=== PATIENT | male | born 1980 | race Caucasian/White ===

== ENCOUNTER 2020-05-12 06:36 | Emergency (ER) | payer SELFPAY ==
[~2020-05-12] VITALS: Ht 172.7 cm; Wt 59.2 kg
[2020-05-12 06:38] VITALS: BP 106/63
[2020-05-12] MEDS ORDERED: IBUP-1902 PO (07:19)
[2020-05-12] MEDS ORDERED: IBUPROFEN 200 MG TABLET ONE (07:24)
[2020-05-12] MEDS ORDERED: ACETAMINOPHEN 325 MG TABLET ONE (07:24)
[2020-05-12] MEDS ORDERED: ACETAMINOPHEN 325 MG TABLET PO ONE (07:30)
[2020-05-12] MEDS ORDERED: IBUPROFEN 600 MG TABLET PO ONE (07:30)
[2020-05-12] MEDS ORDERED: IBUPROFEN 600 MG TABLET ONE (07:31)
--- NOTE | 2020-05-12 07:32 | NUR ---
DR. BACA AT BEDSIDE. MEDICATED PER SEP.
--- NOTE | 2020-05-12 07:57 | NUR ---
TASK RN: THIS RN IN TO PROVIDE PT. D/C INSTRUCITONS. PT. MASTURBATING AND WHEN THIS RN REQUESTED PT. TO STOP HE WALKED CLOSER TO THIS RN WITH PENIS EXPOSED. PT. INFORMED THIS BEHAVIOR WAS INAPPROPRIATE. SECURITY CALLED TO ESCORT PT. OUT OF ED PT. HAS BEEN DISCHARGED AND IS REFUSING TO GET DRESSED.
== END 2020-05-12 08:12 | disposition home or self-care (01) ==
LOC: ED 08:06
DX: B34.9 Viral infection, unspecified (principal); M79.10 Myalgia, unspecified site; R05 Cough; R51.9 Headache, unspecified
CPT/HCPCS: 99283